=== PATIENT | male | born 1940 | race Caucasian/White ===

== ENCOUNTER 2017-06-05 08:13 | Inpatient (IN) | payer MEDICARE ==
[2017-06-01 09:29] LABS: Basophils # (auto) 0 uL; Eosinophils # (auto) 0.1 uL; Hemoglobin 12.7 g/dL (13.5-17.5); Lymphocytes # (auto) 1.6 uL; Lymphocytes % (auto) 23.9 % (10.0-50.0); Monocytes # (auto) 0.6 uL
[2017-06-01 09:31] LABS: Basophils % (auto) 0.4 % (0.0-2.0); Eosinophils % (auto) 1.9 % (0.0-7.0); Hematocrit 37.9 % (41.0-53.0); Mean Corpuscular Hemoglobin 33.8 pg (28.0-32.0); Mean Corpuscular Hgb Conc. 33.6 g/dL (32.0-36.0); Mean Corpuscular Volume 100.6 fL (80.0-100.0); Monocytes % (auto) 9.2 % (0.0-12.0); Neutrophils # (auto) 4.2 uL; Neutrophils % (auto) 64.6 % (37.0-80.0); Nucleated Red Blood Cells % 0.2 %; Platelet Count (auto) 271 10^3/uL (140-450); Red Blood Cells 3.77 10^6/uL (4.5-5.90); Red Cell Distribution Width 14.2 % (11.8-14.3); White Blood Cell 6.5 10^3/uL (4.4-10.8)
[2017-06-01 09:35] LABS: Urine Bacteria NONE SEEN /hpf (None Seen); Urine Blood TRACE /uL (Negative); Urine WBC 1 /hpf (0 - 3)
[2017-06-01 09:49] LABS: INR 0.9 (0.9-1.15); Partial Thromboplastin Time 26.8 sec (22.64-33.71); Prothrombin Time 9.8 sec (9.37-12.3)
[2017-06-01 09:52] LABS: Albumin 3.7 g/dL (3.4-5.0); BUN/Creatinine Ratio 19.2; Bilirubin, Total 0.5 mg/dL (0.2-1.0); Potassium 3.9 mmol/L (3.5-5.1); Total Protein 7.7 g/dL (6.4-8.2)
[~2017-06-05] VITALS: Ht 180.3 cm; Wt 109.6 kg
[~2017-06-05 08:13] MED LIST: AMLO5TAB2 PO; FOLI1TAB6 PO; HYDR-4683 PO; PRAV20TA3 OR; SULF500T8 PO; TRAM50TA2 PO
[2017-06-05] MEDS ORDERED: BUPIVACAINE 0.25% INJ 50ML VIAL ONE (08:19)
[2017-06-05] MEDS ORDERED: BUPIVACAINE W/ EPINEPH 0.25% INJ 50ML MDV ONE (08:19)
[2017-06-05] MEDS ORDERED: ceFAZolin 1GM/50ML 50 ML IV ONE (08:22)
[2017-06-05] MEDS ORDERED: ROPIVACAINE 0.5% (5MG/ML) 20ML AMPULE IJ ONE (10:41)
[2017-06-05] MEDS ORDERED: LIDOCAINE W/ EPINEPHRINE 2% INJ 20ML VIAL ONE (10:41)
[2017-06-05] MEDS ORDERED: ePHEDrine SULFATE 50 MG/ML AMP ONE (10:44)
[2017-06-05] MEDS ORDERED: STERILE WATER 10 ML ONE ×2 (10:45→12:53)
[2017-06-05] MEDS ORDERED: MORPHINE SULF(PF) 0.5MG/ML 10ML VIAL ONE (10:47)
[2017-06-05] MEDS ORDERED: MIDAZOLAM HCL 1MG/1ML-2 ML VIAL ONE (11:49)
[2017-06-05] MEDS ORDERED: ROCURONIUM 10MG/ML 10ML VIAL IV ONE (12:17)
[2017-06-05] MEDS ORDERED: ETOMIDATE (2MG/ML) 20ML VIAL IV ONE (12:17)
[2017-06-05] MEDS ORDERED: NALOXONE HCL 0.4 MG/ML VIAL IV PRN (12:45)
[2017-06-05] MEDS ORDERED: ePHEDrine SULFATE 50 MG/ML AMP IV PRN (12:45)
[2017-06-05] MEDS ORDERED: METOCLOPRAMIDE HCL 5MG/ml INJ 2ml VIAL IV ONE (12:45)
[2017-06-05] MEDS ORDERED: ONDANSETRON HCL 4 MG/2 ML VIAL IV ONE (12:45)
[2017-06-05] MEDS ORDERED: hydrALAZINE HCL 20 MG/ML VL IV PRN (12:45)
[2017-06-05] MEDS ORDERED: ceFAZolin 1GM VL ONE (12:53)
[2017-06-05] MEDS ORDERED: NEOSTIGMINE 1 MG/ML INJ (10mg/10ML VIAL) ONE (15:00)
[2017-06-05] MEDS ORDERED: GLYCOPYRROLATE 0.2 MG/ML 1ML VIAL ONE (15:00)
[2017-06-05] MEDS ORDERED: ACETAMINOPHEN 325 MG TAB PO PRN (16:15)
[2017-06-05] MEDS: MORPHINE SULFATE 4 MG/ML SYR/VIAL IV PRN ×2 (16:15→16:25)
[2017-06-05] MEDS ORDERED: MORPHINE SULFATE 4 MG/ML SYR/VIAL IV PRN (16:15)
[2017-06-05] MEDS ORDERED: NITROGLYCERIN 0.4 MG SL TAB SL PRN (16:15)
[2017-06-05] MEDS ORDERED: TEMAZEPAM 15 MG CAP PO PRN (16:15)
[2017-06-05] MEDS ORDERED: HYDROmorphone HCL 2 MG/ML VL IV PRN (16:15)
[2017-06-05 17:36] VITALS: BP 139/70
[2017-06-05] MEDS: ceFAZolin 1GM/50ML 50 ML IV SCH ×2 (18:19→23:47)
[2017-06-05] MEDS: LACTATED RINGER'S 1,000 ML IV SCH (18:19)
[2017-06-05 18:33] VITALS: BP 139/70
[2017-06-05] MEDS: SULFASALAZINE 500 MG TAB PO SCH (21:44)
[2017-06-05] MEDS: DOCUSATE SOD 100 MG CAP PO SCH (21:44)
[2017-06-05] MEDS: PRAVASTATIN SODIUM 20 MG TAB PO SCH (21:44)
[2017-06-05] MEDS: oxyCODONE ER 10 MG TAB PO SCH (21:45)
[2017-06-05 22:00] VITALS: BP 139/70
[2017-06-05] MEDS: SODIUM CHLOR 0.9% PF (SALINE LOCK) 10ML VIAL IV SCH (22:05)
[2017-06-05] MEDS: HYDROcodone-ACET 10/325MG TAB PO PRN (23:35)
[2017-06-06 05:00] VITALS: BP 120/54
[2017-06-06] MEDS: SODIUM CHLOR 0.9% PF (SALINE LOCK) 10ML VIAL IV SCH ×3 (05:35→22:00)
[2017-06-06] MEDS: ceFAZolin 1GM/50ML 50 ML IV SCH (05:38)
[2017-06-06] MEDS: SULFASALAZINE 500 MG TAB PO SCH ×4 (05:39→21:54)
[2017-06-06 08:00] VITALS: BP 109/62
[2017-06-06 08:26] LABS: Hemoglobin 10.7 g/dL (13.5-17.5)
[2017-06-06 08:30] VITALS: BP 109/62
[2017-06-06 08:42] LABS: Albumin 2.8 g/dL (3.4-5.0); BUN/Creatinine Ratio 13.4; Bilirubin, Total 0.8 mg/dL (0.2-1.0); Potassium 3.5 mmol/L (3.5-5.1)
[2017-06-06] MEDS: amLODIPine BESYLATE 5 MG TAB PO SCH (09:07)
[2017-06-06] MEDS: FOLIC ACID 1 MG TAB PO SCH (09:07)
[2017-06-06] MEDS: DOCUSATE SOD 100 MG CAP PO SCH ×2 (09:08→21:54)
[2017-06-06] MEDS: LOSARTAN POTASSIUM 50 MG TAB PO SCH (09:08)
[2017-06-06] MEDS: oxyCODONE ER 10 MG TAB PO SCH ×2 (09:09→21:55)
[2017-06-06] MEDS: ENOXAPARIN SOD 40 MG/0.4 ML SYRINGE SC SCH (09:13)
[2017-06-06 11:30] VITALS: BP 126/62
[2017-06-06] MEDS: HYDROcodone-ACET 10/325MG TAB PO PRN ×2 (11:46→15:56)
[2017-06-06] MEDS: LACTATED RINGER'S 1,000 ML IV SCH (15:49)
[2017-06-06 16:30] VITALS: BP 127/59
[2017-06-06] MEDS: PRAVASTATIN SODIUM 20 MG TAB PO SCH (21:54)
[2017-06-06 22:00] VITALS: BP 107/58
[2017-06-07 05:00] VITALS: BP 105/52
[2017-06-07 06:01] LABS: Hematocrit 28.4 % (41.0-53.0); Hemoglobin 9.7 g/dL (13.5-17.5)
[2017-06-07] MEDS: HYDROcodone-ACET 10/325MG TAB PO PRN (07:06)
[2017-06-07] MEDS: SULFASALAZINE 500 MG TAB PO SCH ×4 (07:07→22:01)
[2017-06-07] MEDS: SODIUM CHLOR 0.9% PF (SALINE LOCK) 10ML VIAL IV SCH ×2 (07:08→14:00)
[2017-06-07] MEDS: LACTATED RINGER'S 1,000 ML IV SCH (08:09)
[2017-06-07 09:34] VITALS: BP 112/56
[2017-06-07] MEDS: ENOXAPARIN SOD 40 MG/0.4 ML SYRINGE SC SCH (09:52)
[2017-06-07] MEDS: DOCUSATE SOD 100 MG CAP PO SCH ×2 (09:52→22:00)
[2017-06-07] MEDS: amLODIPine BESYLATE 5 MG TAB PO SCH (09:53)
[2017-06-07] MEDS: FOLIC ACID 1 MG TAB PO SCH (09:53)
[2017-06-07] MEDS: LOSARTAN POTASSIUM 50 MG TAB PO SCH (09:54)
[2017-06-07] MEDS: oxyCODONE ER 10 MG TAB PO SCH ×2 (09:54→22:01)
[2017-06-07 12:57] VITALS: BP 117/57
[2017-06-07 16:45] VITALS: BP 108/58
[2017-06-07 22:00] VITALS: BP 110/53
[2017-06-07] MEDS: PRAVASTATIN SODIUM 20 MG TAB PO SCH (22:01)
[2017-06-08] MEDS: SODIUM CHLOR 0.9% PF (SALINE LOCK) 10ML VIAL IV SCH ×3 (03:32→14:00)
[2017-06-08] MEDS: LACTATED RINGER'S 1,000 ML IV SCH (04:09)
[2017-06-08 05:00] VITALS: BP 117/57
[2017-06-08] MEDS: HYDROcodone-ACET 10/325MG TAB PO PRN (06:47)
[2017-06-08] MEDS: SULFASALAZINE 500 MG TAB PO SCH ×2 (06:48→12:00)
[2017-06-08 08:17] LABS: Hematocrit 26.8 % (41.0-53.0); Hemoglobin 9.3 g/dL (13.5-17.5)
[2017-06-08] MEDS: FOLIC ACID 1 MG TAB PO SCH (08:37)
[2017-06-08] MEDS: LOSARTAN POTASSIUM 50 MG TAB PO SCH (08:38)
[2017-06-08] MEDS: oxyCODONE ER 10 MG TAB PO SCH (08:38)
[2017-06-08] MEDS: DOCUSATE SOD 100 MG CAP PO SCH (08:39)
[2017-06-08] MEDS: ENOXAPARIN SOD 40 MG/0.4 ML SYRINGE SC SCH (08:39)
[2017-06-08] MEDS: amLODIPine BESYLATE 5 MG TAB PO SCH (08:39)
[2017-06-08 09:21] VITALS: BP 123/60
[2017-06-08 13:00] VITALS: BP 112/58
== END 2017-06-08 15:00 | DRG 464 ==
LOC: SUR 08:13 → CENTRAL 08:14
PROVIDERS: ADMIT Orthopaedic Surgery; ATTEND Internal Medicine
PROC: 0SRB0JA Replacement of Left Hip Joint with Synthetic Substitute, Uncemented, Open Approach (ICD-10-PCS; 2017-06-05)
PROC: 0MBM0ZZ Excision of Left Hip Bursa and Ligament, Open Approach (ICD-10-PCS; 2017-06-05)
PROC: 0LNK0ZZ Release Left Hip Tendon, Open Approach (ICD-10-PCS; 2017-06-05)
PROC: 0KXP0ZZ Transfer Left Hip Muscle, Open Approach (ICD-10-PCS; 2017-06-05)
PROC: 0JBM0ZZ Excision of Left Upper Leg Subcutaneous Tissue and Fascia, Open Approach (ICD-10-PCS; principal; 2017-06-05 11:49)
DX: M16.12 Unilateral primary osteoarthritis, left hip (principal); K51.90 Ulcerative colitis, unspecified, without complications; D63.8 Anemia in other chronic diseases classified elsewhere; E66.9 Obesity, unspecified; M06.9 Rheumatoid arthritis, unspecified; R71.0 Precipitous drop in hematocrit; Z68.33 Body mass index [BMI] 33.0-33.9, adult; E78.5 Hyperlipidemia, unspecified; I10 Essential (primary) hypertension; M70.62 Trochanteric bursitis, left hip; M21.852 Other specified acquired deformities of left thigh; M62.89 Other specified disorders of muscle; M24.552 Contracture, left hip; Z87.891 Personal history of nicotine dependence; Z89.422 Acquired absence of other left toe(s); Z89.421 Acquired absence of other right toe(s)
CPT/HCPCS: 36415; 73501; 80053; 81001; 85014; 85018; 85025; 85610; 85730; 86850; 86900; 86901; 97116; 97163; 97530; A4565; J0690; J2250; J3490